=== PATIENT | female | born 1995 | race Caucasian/White ===

== ENCOUNTER 2022-11-19 11:47 | Emergency (ER) | payer SELFPAY ==
[2022-11-19 12:56] LABS: #Eosinphils 0.1 10x3/uL (0.0-0.5); #Monocytes 0.6 10x3/uL (0.0-1.1); #Neutrophils 5.4 10x3/uL (1.5-8.4); %Basophils 0.1 % (0.0-2.0); %Eosinophils 1.3 % (0.0-6.0); %Lymphocytes 28.1 % (18.0-47.0); %Monocytes 6.9 % (0.0-10.0); %Neutrophils 63.2 % (40.0-75.0); Hemoglobin 12.9 g/dL (12.0-15.5); Mean Corpuscular HGB CONC 33.4 g/dL (32.0-36.0); Mean Corpuscular Volume 80.8 fl (81.6-98.3); Mean Platelet Volume 11.6 fl (7.4-10.4); Platelet Count 202 10x3/uL (150-450); RBC Distribution Width 13.7 % (11.5-14.5); Red Blood Cell (RBC) Count 4.78 10x6/uL (3.90-5.03); White Blood Cell (WBC) Count 8.5 10x3/uL (3.5-10.5)
[2022-11-19 13:10] LABS: ALT (SGPT) 9 U/L (8-55); AST (SGOT) 14 U/L (5-34); Albumin 4.2 g/dL (3.5-5.0); Alkaline Phosphatase 50 U/L (40-110); Anion Gap 15 mmol/L (10-20); BUN (Urea Nitrogen) 7 mg/dL (7.0-18.7); Bilirubin, Total 0.3 mg/dL (0.2-1.2); Calc. Creatinine Clearance 0 mL/min (70-130); Calcium 9.1 mg/dL (7.8-10.44); Carbon Dioxide 22 mmol/L (22-29); Chloride 104 mmol/L (98-107); Estimated GFR 122; Globulin 3.3 g/dL (2.4-3.5); Glucose 80 mg/dL (70-105); Potassium 4.2 mmol/L (3.5-5.1); Protein, Total 7.5 g/dL (6.0-8.3); Sodium 137 mmol/L (136-145)
[2022-11-19 13:20] LABS: Bilirubin Neg (Negative); Blood, Urine Negative (Negative); Glucose, Urine (Dipstick) Normal (Negative); Ketone, Urine 50 mg/dL (Negative); Leukocyte Negative (Negative); Nitrite Negative (Negative); Protein, Urine (Dipstick) Negative (Neg-Trace); Urobilinogen Normal mg/dL (Less than 2)
[2022-11-19 13:26] LABS: Clarity Hazy (Clear)
== END 2022-11-19 14:40 | disposition home or self-care (01) ==
LOC: CSHERS 11:47
DX: O20.0 Threatened abortion (principal); Z3A.12 12 weeks gestation of pregnancy
CPT/HCPCS: 36415; 76815; 80053; 81003; 84702; 85025

== ENCOUNTER 2023-01-01 17:48 | Emergency (ER) | payer SELFPAY ==
[2023-01-01 18:39] LABS: Bilirubin Neg (Negative); Blood, Urine 10 (Negative); Clarity Cloudy (Clear); Glucose, Urine (Dipstick) Normal (Negative); Ketone, Urine Negative (Negative); Leukocyte 500 (Negative); Nitrite Negative (Negative); Protein, Urine (Dipstick) 15 mg/dl (Neg-Trace); Specific Gravity, Urine 1.015 (1.005-1.030); Urobilinogen Normal mg/dL (Less than 2)
[2023-01-01 18:49] LABS: CAUTI Indications for Culture Dysuria,urgency,freq; RBC/HPF 0-3 HPF (0-3)
[2023-01-01 18:50] LABS: Bacteria/HPF 1+ HPF (None Seen); Urine Culture Reflex No No
[2023-01-01] MEDS ORDERED: cefTRIAXone (ROCEPHIN) 1 GM VIAL ONE (20:12)
[2023-01-01] MEDS ORDERED: Lidocaine 1% (PF) 30 ML VIAL ONE (20:12)
[2023-01-02 22:42] LABS: Chlamydia by PCR, Vaginal Swab Not Detected (NotDetected); GC by PCR, Vaginal Swab Not Detected (NotDetected); Tric.vaginalis PCR,Vaginal Sw Not Detected (NotDetected)
== END 2023-01-01 20:30 | disposition home or self-care (01) ==
LOC: CSHERS 17:48
DX: N30.00 Acute cystitis without hematuria (principal); N76.0 Acute vaginitis
CPT/HCPCS: 81001; 87086; 87480; 87491; 87510; 87591; 87660; 87661; 96372; 99283; J0696; J2001

== ENCOUNTER 2023-04-30 03:40 | Day surgery (SDC) | payer SELFPAY ==
[2023-04-30 03:59] VITALS: BMI 29.4
[2023-04-30] MEDS ORDERED: hydrALAZINE 20 MG/ML VIAL SLOW IVP PRN (04:29)
[2023-04-30 04:40] LABS: Bilirubin Neg (Negative); Blood, Urine Negative (Negative); Clarity Slightly Cloudy (Clear); Glucose, Urine (Dipstick) Normal (Negative); Ketone, Urine Negative (Negative); Leukocyte Negative (Negative); Nitrite Negative (Negative); Protein, Urine (Dipstick) Negative (Neg-Trace); Urobilinogen Normal mg/dL (Less than 2)
[2023-04-30 04:48] LABS: RBC/HPF None Seen HPF (0-3)
[2023-04-30 04:49] LABS: Bacteria/HPF None Seen HPF (None Seen); CAUTI Indications for Culture Pregnancy; WBC/HPF None Seen HPF (0-3)
[2023-04-30 04:51] LABS: Urine Culture Reflex Yes Yes
[2023-04-30 05:02] LABS: Fetal Membranes Rupture No Membranes Rupture (No Rupture)
== END 2023-04-30 05:56 | disposition home or self-care (01) ==
LOC: CSHLD/OP 03:40
PROVIDERS: ATTEND Family Medicine
DX: O99.891 Other specified diseases and conditions complicating pregnancy (principal); R10.9 Unspecified abdominal pain; O23.593 Infection of other part of genital tract in pregnancy, third trimester; B96.89 Other specified bacterial agents as the cause of diseases classified elsewhere; Z90.89 Acquired absence of other organs; Z79.899 Other long term (current) drug therapy; Z3A.34 34 weeks gestation of pregnancy
CPT/HCPCS: 81001; 84112; 87086; 87480; 87510; 87660; 99285

== ENCOUNTER 2023-05-11 09:19 | Day surgery (SDC) | payer SELFPAY | END 2023-05-11 10:50 | disposition home or self-care (01) | LOC: CSHLD/OP 09:19 | PROVIDERS: ATTEND Family Medicine | DX: O47.03 False labor before 37 completed weeks of gestation, third trimester (principal); Z3A.36 36 weeks gestation of pregnancy ==

== ENCOUNTER 2023-05-12 22:29 | Day surgery (SDC) | payer SELFPAY ==
[2023-05-12 23:23] VITALS: BMI 29.1
[2023-05-13] MEDS ORDERED: hydrALAZINE 20 MG/ML VIAL SLOW IVP PRN (00:10)
[2023-05-13] MEDS ORDERED: Lactated Ringer's 1,000 ML IV SCH (00:15)
[2023-05-13] MEDS ORDERED: fentaNYL 50 mcg/mL 1 mL Vial SLOW IVP SCH (00:15)
== END 2023-05-13 00:44 | disposition home or self-care (01) ==
LOC: CSHLD/OP 22:29
PROVIDERS: ATTEND Family Medicine
DX: O47.03 False labor before 37 completed weeks of gestation, third trimester (principal); Z3A.36 36 weeks gestation of pregnancy
CPT/HCPCS: 99283

== ENCOUNTER 2023-05-23 18:27 | Day surgery (SDC) | payer SELFPAY ==
[2023-05-23 19:27] LABS: Fetal Membranes Rupture No Membranes Rupture (No Rupture)
[2023-05-23] MEDS ORDERED: hydrALAZINE 20 MG/ML VIAL SLOW IVP PRN (20:04)
== END 2023-05-23 21:14 | disposition home or self-care (01) ==
LOC: CSHLD/OP 18:27
PROVIDERS: ATTEND Family Medicine
DX: O47.1 False labor at or after 37 completed weeks of gestation (principal); O99.513 Diseases of the respiratory system complicating pregnancy, third trimester; J45.909 Unspecified asthma, uncomplicated; Z90.89 Acquired absence of other organs; Z79.899 Other long term (current) drug therapy; Z3A.37 37 weeks gestation of pregnancy
CPT/HCPCS: 84112

== ENCOUNTER 2023-06-02 06:00 | Inpatient (IN) | payer SELFPAY ==
[2023-06-02 07:13] VITALS: BMI 29.9
[2023-06-02] MEDS ORDERED: Penicillin G Potassium 5 MILL.UNITS VIAL ONE (07:43)
[2023-06-02] MEDS ORDERED: HYDROcodone/Acetaminophen 5/325 mg Tablet PO PRN ×2 (07:55→17:53)
[2023-06-02] MEDS ORDERED: Ibuprofen 800 MG TAB PO PRN (07:55)
[2023-06-02] MEDS ORDERED: Tranexamic Acid 1,000 MG/10 ML VIAL IVP PRN (07:55)
[2023-06-02] MEDS ORDERED: Promethazine HCl 25 MG/ML VIAL IM PRN (07:55)
[2023-06-02] MEDS ORDERED: Misoprostol 200 MCG TAB PR PRN (07:55)
[2023-06-02] MEDS ORDERED: Acetaminophen 500 MG TAB PO PRN (07:55)
[2023-06-02] MEDS ORDERED: Ondansetron PF 4 MG/2 ML Vial IVP PRN (07:55)
[2023-06-02] MEDS ORDERED: Butorphanol Tartrate 1 MG/ML VIAL SLOW IVP PRN (07:55)
[2023-06-02] MEDS ORDERED: Carboprost 250 MCG/ML AMP IM PRN (07:55)
[2023-06-02] MEDS ORDERED: Lidocaine 1% (PF) 30 ML VIAL SC PRN (07:55)
[2023-06-02] MEDS ORDERED: fentaNYL 50 mcg/mL 1 mL Vial SLOW IVP PRN (07:55)
[2023-06-02] MEDS ORDERED: Methylergonovine 0.2 MG/ML VIAL IM PRN (07:55)
[2023-06-02] MEDS ORDERED: hydrALAZINE 20 MG/ML VIAL SLOW IVP PRN ×2 (07:55→17:53)
[2023-06-02] MEDS ORDERED: Penicillin G Potassium 5 MILL.UNITS in Sodium Chloride 0.9% 100 ML IVPB SCH (08:00)
[2023-06-02] MEDS ORDERED: Oxytocin 30 units/NS 500 ML 500 ML IV SCH ×2 (08:00)
[2023-06-02 08:11] LABS: Hematocrit 34.6 % (34.9-44.5); Mean Corpuscular HGB CONC 31.8 g/dL (32.0-36.0); Mean Corpuscular Hemoglobin 23.3 pg (27.0-33.0); Mean Corpuscular Volume 73.3 fl (81.6-98.3); Mean Platelet Volume 11.4 fl (7.4-10.4); Platelet Count 208 10x3/uL (150-450); RBC Distribution Width 15.5 % (11.5-14.5); Red Blood Cell (RBC) Count 4.72 10x6/uL (3.90-5.03); White Blood Cell (WBC) Count 9.2 10x3/uL (3.5-10.5)
[2023-06-02 09:03] LABS: Syphilis Antibody Nonreactive (Nonreactive); Syphilis Antibody Index 0.04 S/CO (<1.00 Non-Reactive)
[2023-06-02 09:05] LABS: HBSAg Index 0.17 S/CO (0-0.99); HIV (1/2) Antibody/Antigen Non-Reactive (NonReactive); HIV 1/2 INDEX 0.12 S/CO (<1.00); Hep B Surf Ag - L&D Non-Reactive S/CO (NonReactive)
[2023-06-02] MEDS: Penicillin G 2.5 MILL.units 2.5 MILL.UNITS in Premix 1 BAG IVPB SCH ×2 (11:08→15:18)
[2023-06-02] MEDS ORDERED: Preparation H Ointment 28 GM TUBE PR PRN (17:53)
[2023-06-02] MEDS ORDERED: Benzocaine-Menthol 82.5 ML CAN TOP PRN (17:53)
[2023-06-02] MEDS ORDERED: Bisacodyl 10 MG SUPP PR PRN (17:53)
[2023-06-02] MEDS ORDERED: Milk Of Magnesia 30 ML UDCUP PO PRN (17:53)
[2023-06-02] MEDS ORDERED: Ferrous Sulfate 325 MG TAB PO SCH (18:00)
[2023-06-02] MEDS: Docusate 100 MG CAP PO SCH (21:14)
[2023-06-02] MEDS ORDERED: Ibuprofen 800 MG TAB PO SCH (22:00)
[2023-06-03] MEDS: Ibuprofen 800 MG TAB PO SCH ×3 (00:11→16:27)
[2023-06-03 04:45] LABS: Hematocrit 26.7 % (34.9-44.5); Hemoglobin 8.4 g/dL (12.0-15.5)
[2023-06-03] MEDS: Docusate 100 MG CAP PO SCH (08:42)
[2023-06-03] MEDS: Ferrous Sulfate 325 MG TAB PO SCH ×2 (08:42→16:27)
[2023-06-03 11:43] VITALS: BP 118/76; TEMP 97.8
== END 2023-06-03 17:20 | disposition home or self-care (01) | DRG 807 ==
LOC: CSHLD 06:05 → CSHPED 18:24
PROVIDERS: ADMIT Family Medicine; ATTEND Family Medicine
PROC: 10E0XZZ Delivery of Products of Conception, External Approach (ICD-10-PCS; principal; 2023-06-02)
PROC: 10907ZC Drainage of Amniotic Fluid, Therapeutic from Products of Conception, Via Natural or Artificial Opening (ICD-10-PCS; 2023-06-02)
DX: O99.824 Streptococcus B carrier state complicating childbirth (principal); Z37.0 Single live birth; Z3A.39 39 weeks gestation of pregnancy; O72.1 Other immediate postpartum hemorrhage
CPT/HCPCS: 36415; 85014; 85018; 85027; 86762; 86780; 86850; 86900; 86901; 87340; 87389; J2540; J2590; J3490

== ENCOUNTER 2025-06-11 21:34 | Day surgery (SDC) | payer SELFPAY ==
[2025-06-11 21:56] VITALS: BMI 32.1
[2025-06-11 22:43] LABS: Fetal Membranes Rupture No Membranes Rupture (No Rupture)
== END 2025-06-12 | disposition home or self-care (01) ==
LOC: CSHLD/OP 21:34
PROVIDERS: ATTEND Family Medicine
DX: O47.1 False labor at or after 37 completed weeks of gestation (principal); Z03.71 Encounter for suspected problem with amniotic cavity and membrane ruled out; Z3A.37 37 weeks gestation of pregnancy
CPT/HCPCS: 84112; 99283